=== PATIENT | female | born 1985 | race Caucasian/White ===

== ENCOUNTER 2016-10-24 17:44 | Emergency (ER) | payer BC, OTHER ==
[2016-10-24 16:56] LABS: INFLUENZA A NEG (NEG); INFLUENZA B NEG (NEG)
[~2016-10-24 17:44] MED LIST: ACETAMINOPHEN PO; ALBUTEROL17 GM INH; AMOXICILLIN500 M1 PO; ANTIDEPRESSANT; ARIPIPRAZOLE30 MG PO; BACTRIM DS TABL1 TA1 PO; CIPRO PO; CIPRO250 MG PO; FIORICET1 TAB PO; IBUPROFEN800 MG; IBUPROFEN800 MG PO; IMITREX25 MG PO; K-DUR20 ME1 PO; LAMOTRIGINE100 MG PO; LORTAB 7.5-3251 EACH; LORTAB 7.51 TAB; MACROBID100 MG PO; MEDI-MECLIZINE25 M1 PO; METHOCARBAMOL; NEURONTIN PO; NO MEDICATIONS; PEPCID AC20 M2 PO; PREDNISONE10 MG/DOSE PO; PRENATA CHEWAB1 EAC1 PO; PRENATAL1 TA1 PO; PRILOSEC40 MG PO; PYRIDIUM PO; PYRIDIUM100 MG PO; Q-PAP325 MG PO; ROBAXIN500 MG; ROBAXIN500 MG PO; SEROQUEL PO; TYLENOL #3 PO; ULTRAM PO; VICODIN 5/1 TAB 5/50 PO; VOLTAREN75 MG PO; XODOL; ZITHROMAX PO; ZOFRAN ODT4 MG PO; ZOFRAN PO; ZOFRANODT PO
== END 2016-10-24 18:11 | disposition home or self-care (01) ==
LOC: SED 17:44
PROVIDERS: Nurse Practitioner
DX: O99.512 Diseases of the respiratory system complicating pregnancy, second trimester (principal); J11.83 Influenza due to unidentified influenza virus with otitis media; J45.909 Unspecified asthma, uncomplicated; O99.332 Smoking (tobacco) complicating pregnancy, second trimester; F17.200 Nicotine dependence, unspecified, uncomplicated; Z79.899 Other long term (current) drug therapy; Z3A.22 22 weeks gestation of pregnancy; Z88.5 Allergy status to narcotic agent; Z88.1 Allergy status to other antibiotic agents; Z88.8 Allergy status to other drugs, medicaments and biological substances
CPT/HCPCS: 87804; 99284

== ENCOUNTER 2016-11-16 22:09 | Emergency (ER) | payer BC ==
[2016-11-16] MEDS ORDERED: AMOXICILLIN500 M1 PO (22:47)
== END 2016-11-16 22:48 | disposition home or self-care (01) ==
LOC: SED 22:09
DX: K04.7 Periapical abscess without sinus (principal); F17.200 Nicotine dependence, unspecified, uncomplicated
CPT/HCPCS: 99282

== ENCOUNTER 2016-12-17 13:44 | Emergency (ER) | payer BC, OTHER | END 2016-12-17 16:18 | disposition home or self-care (01) | LOC: SED 13:44 | DX: O99.519 Diseases of the respiratory system complicating pregnancy, unspecified trimester (principal); J20.9 Acute bronchitis, unspecified; F41.9 Anxiety disorder, unspecified; F17.200 Nicotine dependence, unspecified, uncomplicated; Z88.5 Allergy status to narcotic agent; Z88.1 Allergy status to other antibiotic agents; Z88.8 Allergy status to other drugs, medicaments and biological substances | CPT/HCPCS: 94640; 99284 ==

== ENCOUNTER 2017-04-09 09:48 | Emergency (ER) | payer BC, OTHER ==
[2017-04-09 10:29] LABS: URINE SOURCE CLEAN CATCH
[2017-04-09 10:32] LABS: URINE APPEARANCE CLEAR; URINE BILIRUBIN NEG (NEG); URINE BLOOD 3+ (NEG); URINE COLOR YELLOW; URINE GLUCOSE NEG (NORM); URINE KETONE NEG (NEG); URINE LEUKOCYTE ESTERASE NEG (NEG); URINE NITRATE POS (NEG); URINE PH 5.5 (5-8); URINE PROTEIN TRACE (NEG); URINE SPECIFIC GRAVITY >=1.030 (1.003-1.035)
[2017-04-09 10:43] LABS: MICRO INDICATED? YES
[2017-04-09 10:51] LABS: CULTURE INDICATED? NO; URINE BACTERIA NEG (NEG); URINE RBC 50-100 /[HPF] (0-2); URINE WBC 0-2 /[HPF] (0-5)
[2017-04-09] MEDS ORDERED: MACROBID100 M1 (11:06)
== END 2017-04-09 11:06 | disposition home or self-care (01) ==
LOC: SED 09:48
PROVIDERS: Nurse Practitioner Family
DX: N39.0 Urinary tract infection, site not specified (principal); J45.909 Unspecified asthma, uncomplicated; F17.210 Nicotine dependence, cigarettes, uncomplicated; Z88.8 Allergy status to other drugs, medicaments and biological substances; Z87.442 Personal history of urinary calculi; F20.9 Schizophrenia, unspecified
CPT/HCPCS: 81003; 84703; 99283

== ENCOUNTER 2017-04-21 18:01 | Emergency (ER) | payer BC, OTHER ==
[~2017-04-21 18:01] MED LIST changes: +MACROBID100 M1
== END 2017-04-21 19:25 | disposition home or self-care (01) ==
LOC: SED 18:01
DX: G43.909 Migraine, unspecified, not intractable, without status migrainosus (principal); J45.909 Unspecified asthma, uncomplicated; F17.210 Nicotine dependence, cigarettes, uncomplicated; Z88.1 Allergy status to other antibiotic agents; Z79.899 Other long term (current) drug therapy
CPT/HCPCS: 36415; 96361; 96374; 96375; 99283; J1200; J1885; J2405

== ENCOUNTER 2017-04-30 12:23 | Emergency (ER) | payer BC, OTHER ==
--- NOTE | ~2017-04-30 | CR150 ---
[facility] A Service of [facility] & [facility] RADIOLOGY TEXT RESULTS PATIENT: REINALDO DE LEON LOCATION: SED : 85 UNIT #: [id number] AGE: [address]: YARELI LOGAN SEX: F ORDER DR: [id number] [place] [id number] E MR#: [id number] Acc #: [id number] NAME: REINALDO DE LEON : 1985 SEX: F STUDY DATE/TIME: 04/30/2017 13:44 UNIT: SED ROOM: STUDY DESCRIPTION: CR Hip Min 2 Views Lt Attending Physician: Peggy Stevens Ordering Physician: Peggy Stevens Primary Care Physician: Terra MeierPRenettaRFaviola MEDICAL IMAGING REPORT This report is preliminary unless electronic signature is present. EXAM Left hip 04/30/2017 HISTORY 31-year-old woman left hip pain beginning today at 11:30 a.m., blunt trauma today. Pain described as lateral hip pain. FINDINGS AP pelvis with frog-leg lateral view of the left hip demonstrates intact cortex throughout. Bone mineralization is preserved. Bilateral hip joints are symmetrical. Sacroiliac joints are normal. IUD is present. IMPRESSION Negative left hip Dictated by... Demond Alvarez M.D. THIS IS AN ELECTRONICALLY VERIFIED REPORT Demond Alvarez M.D. at 04/30/2017 3:55 PM YVES/[place] TD: 04/30/2017 14:48 JOB #: [id number] MEDICAL IMAGING REPORT Page 1 of 1
== END 2017-04-30 14:30 | disposition home or self-care (01) ==
LOC: SED 12:23
DX: S39.011A Strain of muscle, fascia and tendon of abdomen, initial encounter (principal); J45.909 Unspecified asthma, uncomplicated; F17.210 Nicotine dependence, cigarettes, uncomplicated; Z88.1 Allergy status to other antibiotic agents; Z88.5 Allergy status to narcotic agent; Z79.899 Other long term (current) drug therapy; X50.0XXA Overexertion from strenuous movement or load, initial encounter
CPT/HCPCS: 73502; 99283